=== PATIENT | male | born 1990 | race Caucasian/White ===

== ENCOUNTER 2024-01-12 14:37 | Observation (INO) | payer SELFPAY ==
[~2024-01-12] VITALS: Ht 188 cm; Wt 104.3 kg
[2024-01-12 15:00] VITALS: TEMP 97.3
[2024-01-12] MEDS: ONDANSETRON HCL INJ 2MG/ML 2ML 2 MG/ML VIAL IV STA (15:32)
[2024-01-12] MEDS: METOCLOPRAMIDE HCL 10 MG/2ML VIAL IV STA (15:33)
[2024-01-12] MEDS: GLUCAGON FOR INJ 1 MG VIAL IV ONE (15:36)
[2024-01-12 16:01] LABS: BASOPHILS # (AUTO) 0.1 (0.0-0.1); BASOPHILS % 0.7 % (0.0-1.0); EOSINOPHILS # (AUTO) 0.1 (0.0-0.4); EOSINOPHILS % 1.6 % (0.0-6.0); HEMATOCRIT 50.3 % (38.2-49.6); HEMOGLOBIN 16.7 g/dL (14.0-18.0); LYMPHOCYTES # (AUTO) 1.9 (1.0-3.2); LYMPHOCYTES % 23.1 % (18.0-39.1); MEAN CORPUSCULAR HGB CONC 33.2 g/dL (31-35); MEAN CORPUSCULAR VOLUME 90.3 fL (81-99); MONOCYTES # (AUTO) 0.4 (0.2-0.8); MONOCYTES % 4.3 % (4.4-11.3); NEUTROPHILS # (AUTO) 5.9 (2.1-6.9); NEUTROPHILS % 70.1 % (38.7-80.0); PLATELET COUNT 312 x10e3/uL (140-360); RED BLOOD COUNT 5.57 x10e6/uL (4.3-5.7); RED CELL DISTRIBUTION WIDTH 12.7 % (11.7-14.4); WHITE BLOOD COUNT 8.36 x10e3/uL (4.8-10.8)
[2024-01-12 16:07] LABS: INR 0.94; PROTHROMBIN TIME 13.2 seconds (11.9-14.5)
[2024-01-12 16:14] LABS: ALBUMIN 4.2 g/dL (3.5-5.0); ALBUMIN/GLOBULIN RATIO 1.2 (0.8-2.0); ANION GAP 16.8 mmol/L (8-16); BILIRUBIN,TOTAL 0.3 mg/dL (0.2-1.2); CALCIUM 10.4 mg/dL (8.4-10.2); CREATININE, SERUM 1.35 mg/dL (0.72-1.25); POTASSIUM 3.8 mmol/L (3.5-5.1); TOTAL PROTEIN 7.8 g/dL (6.5-8.1)
[2024-01-12 16:20] LABS: TROPONIN I 0.001 ng/mL (0-0.300)
[2024-01-12 17:30] VITALS: PULSE 72; RESP 16
[2024-01-12] MEDS ORDERED: FENTANYL CITRATE/PF 100MCG/2 ML INJ ONE (18:26)
[2024-01-12] MEDS ORDERED: ONDANSETRON HCL INJ 2MG/ML 2ML 2 MG/ML VIAL IV PRN (18:30)
[2024-01-12] MEDS ORDERED: PROPOFOL IV EMULSION 10 MG/ML 20 ML VIAL ONE ×2 (18:36→18:52)
[2024-01-12] MEDS ORDERED: METOCLOPRAMIDE HCL 10 MG/2ML VIAL ONE (18:40)
[2024-01-12] MEDS ORDERED: DEXAMETHASONE SOD PHOS INJ 4 MG/ML SDV ONE (18:40)
[2024-01-12] MEDS ORDERED: ONDANSETRON HCL INJ 2MG/ML 2ML 2 MG/ML VIAL ONE (18:40)
[2024-01-12] MEDS ORDERED: GLYCOPYRROLATE INJ 0.2 MG/ML VIAL ONE (19:04)
[2024-01-12] MEDS ORDERED: NEOSTIGMINE 1 MG/ML 10ML VIAL ONE (19:04)
[2024-01-12 20:00] VITALS: BP 113/67; PULSE 58; RESP 18; TEMP 97.8; O2SAT 98
[2024-01-12] MEDS: SODIUM CHLORIDE 0.9% 1000ML 1,000 ML IV SCH (20:45)
[2024-01-12 21:51] VITALS: BP 113/67; PULSE 58; RESP 18; TEMP 97.8; O2SAT 98
[2024-01-12 21:55] VITALS: BP 113/67; PULSE 58; RESP 18; TEMP 97.8; O2SAT 98
[2024-01-13 04:00] VITALS: BP 108/69; PULSE 63; RESP 18; TEMP 97.7; O2SAT 96
[2024-01-13 07:46] VITALS: BP 110/66; PULSE 52; RESP 19; TEMP 97.6; O2SAT 94
[2024-01-13] MEDS ORDERED: ONDANSETRON ODT4 MG PO (08:57)
[2024-01-13 09:05] VITALS: BP 110/66; PULSE 52; RESP 19; TEMP 97.6; O2SAT 94
[2024-01-13] MEDS ORDERED: REGLAN10 MG PO (09:21)
[2024-01-13] MEDS ORDERED: PROTONIX40 MG PO (09:21)
== END 2024-01-13 09:15 | disposition home or self-care (01) ==
LOC: ER 14:45 → ERHOLD 16:29 → MED/SURG 20:00
PROVIDERS: ADMIT Internal Medicine; ATTEND Internal Medicine
DX: K22.2 Esophageal obstruction (principal); T18.0XXA Foreign body in mouth, initial encounter; E86.0 Dehydration; R73.9 Hyperglycemia, unspecified; K44.9 Diaphragmatic hernia without obstruction or gangrene; Z72.0 Tobacco use; G40.909 Epilepsy, unspecified, not intractable, without status epilepticus
CPT/HCPCS: 36415; 43247; 43450; 71045; 80053; 80320; 82550; 83690; 83880; 84484; 85025; 85610; 93005; 99284; G0378 ×2; J1100; J1610; J2405; J2470; J2704; J2710; J2765; J3010; J7030 ×2; 45379